=== PATIENT | female | born 1980 | race Two or more races ===

== ENCOUNTER 2021-05-29 17:01 | Emergency (ER) | payer SELFPAY ==
[~2021-05-29] VITALS: Ht 167.6 cm; Wt 90.1 kg
[2021-05-29 17:02] VITALS: BP 135/76
[2021-05-29] MEDS ORDERED: EXCETAB33 PO (17:32)
[2021-05-29] MEDS ORDERED: GABA600T4 PO (17:32)
== END 2021-05-29 20:16 | disposition left against medical advice (07) ==
LOC: M ED 17:01
DX: Z53.21 Procedure and treatment not carried out due to patient leaving prior to being seen by health care provider (principal)